=== PATIENT | female | born 1960 | race Caucasian/White ===

== ENCOUNTER → 2016-07-29 | Outpatient (CLI) | payer MEDICARE, MEDICAID ==
[2016-07-29 07:20] LABS: BASO # 0.1 K/mm3 (0.0-0.2); BASO % 0.9 % (0.0-1.0); EOS # 0.2 K/mm3 (0.0-0.50); EOS % 2.5 % (0.0-3.0); LARGE UNSTAINED CELL # 0.2 K/mm3 (0.0-0.4); LARGE UNSTAINED CELL % 2.4 % (0.0-4.0); LYMPH # 1.9 K/mm3 (1.5-4.5); LYMPH % 28.2 % (24.0-44.0); MEAN CORPUSCULAR HEMOGLOBIN 28.1 pg (27.0-33.0); MEAN CORPUSCULAR HGB CONC 32.8 g/dl (32.0-36.5); MEAN CORPUSCULAR VOLUME 85.6 fl (80.0-96.0); MONO # 0.3 K/mm3 (0.0-0.8); MONO % 4.1 % (0.0-5.0); NEUTROPHILS # 3.9 K/mm3 (1.8-7.7); NEUTROPHILS % 61.9 % (36.0-66.0); PLATELET COUNT, AUTOMATED 247 k/mm3 (150-450); RED CELL DISTRIBUTION WIDTH 13.6 % (11.5-14.5); WHITE BLOOD COUNT 6.3 K/mm3 (4.0-10.0)
[2016-07-29 07:52] LABS: ALBUMIN 3.9 GM/DL (3.2-5.2); ALBUMIN/GLOBULIN RATIO 1.26 (1.00-1.93); ALKALINE PHOSPHATASE 102 U/L (45-117); ALT/SGPT 23 U/L (12-78); ANION GAP 9 MEQ/L (8-16); AST/SGOT 12 U/L (15-37); BILIRUBIN,TOTAL 0.3 MG/DL (0.2-1.0); BLOOD UREA NITROGEN 37 MG/DL (7-18); CALCIUM LEVEL 8.6 MG/DL (8.5-10.1); CARBON DIOXIDE LEVEL 25 MEQ/L (21-32); CHLORIDE LEVEL 108 MEQ/L (98-107); CREATININE FOR GFR 0.86 MG/DL (0.55-1.02); FERRITIN 40 NG/ML (8-252); GLOMERULAR FILTRATION RATE > 60.0 (>51); GLUCOSE, FASTING 119 MG/DL (70-105); PERCENT SATURATION 13.2 % (13.2-37.4); POTASSIUM SERUM 4.1 MEQ/L (3.5-5.1); SODIUM LEVEL 142 MEQ/L (136-145); TOTAL IRON BINDING CAPACITY 401 UG/DL (250-450)
== END ==
LOC: M LAB 06:41
PROVIDERS: ATTEND Family Medicine
DX: M17.9 Osteoarthritis of knee, unspecified (principal); Z79.899 Other long term (current) drug therapy

== ENCOUNTER → 2016-11-02 | Outpatient (CLI) | payer MEDICARE, MEDICAID ==
[~2016-11-02] MED LIST: DRIS50002 PO; FLUT05CR TOP; NAPR250T45 PO; THERTAB PO; VIAC8.5C PO
--- NOTE | 2016-11-02 11:34 | REPMRS ---
Patient History The patient states she has not had a clinical breast exam in over a year. Patient is nulliparous. Family history of breast cancer in maternal grandmother. Digital Woman Screen Mammo: November 02, 2016 - Exam #: [id number] Bilateral CC and MLO view(s) were taken. Technologist: Sandhya Yung, Technologist Prior study comparison: November 03, 2015, digital woman screen mammo performed at [facility]. October 29, 2014, digital woman screen mammo performed at [facility]. FINDINGS: There are scattered fibroglandular densities. There has been no change in the appearance of the mammogram from the prior studies. There is a mild amount of residual fibroglandular tissue which is fairly symmetric. There is no interval development of dominant mass, architectural distortion, or clustered microcalcification suggestive of malignancy. ASSESSMENT: BI-RADS/ACR category 1 mammogram. Negative. Recommendation Routine screening mammogram in 1 year (for women over age 40). This mammogram was interpreted with the aid of an FDA-approved computer-aided dectection system. Electronically Signed By: Dc Rivera MD 11/02/16 [id number]
--- NOTE | 2016-11-03 12:27 | DEXA ---
AP SPINE L1 - L4 0.946 -2.0 -1.1 LT FEMUR TOTAL 0.802 -1.6 -0.9 RT FEMUR TOTAL 0.925 -0.7 0.0 TOTAL BODY TOTAL OTHER DUAL FEMUR FRAX* ASSESSMENT Risk factors: Not performed. 10 year probability of fracture Major osteoporotic fracture % Hip fracture % COMMENTS: There is low bone density of the spine and hips. The decreased density of the spine does represent a significant change. The decreased density of the left hip does represent a significant change. The decreased density of the right hip does not represent a significant change. The density of the spine has increased 0.1% since the initial exam on 2008. The spine density has decreased 8.4% since the most recent exam on 10/29/2014. The density of the left hip has decreased 3.3% since the initial exam on 2008. The density of the left hip has decreased 2.3% since the most recent exam on 01/2015. The density of the right hip has decreased 1.6% since the initial exam on 2008. The density of the right hip has decreased 1.2% since the most recent exam on . FOLLOW-UP: Recommendation for the next bone density exam: 2 years. MAX
== END ==
LOC: M WHC 10:29
PROVIDERS: ATTEND Family Medicine
DX: Z12.31 Encounter for screening mammogram for malignant neoplasm of breast (principal); M85.80 Other specified disorders of bone density and structure, unspecified site; Z78.0 Asymptomatic menopausal state
CPT/HCPCS: 77080; G0202

== ENCOUNTER 2016-12-01 09:29 | Outpatient (CLI) | payer MEDICARE, MEDICAID ==
[~2016-12-01] VITALS: Ht 162.6 cm; Wt 78.0 kg
[2016-12-01] MEDS ORDERED: ZOLEDRONIC ACID 5 MG in APPROPRIATE DILUENT 1 EA IV ONE (10:00)
[2016-12-01] MEDS ORDERED: FLUT05CR TOP (10:23)
[2016-12-01] MEDS ORDERED: VIAC8.5C PO (10:23)
[2016-12-01] MEDS ORDERED: NAPR250T45 PO (10:23)
[2016-12-01] MEDS ORDERED: DRIS50002 PO (10:23)
[2016-12-01] MEDS ORDERED: THERTAB PO (10:23)
== END 2016-12-01 10:45 | disposition home or self-care (01) ==
LOC: M INFU 09:29
PROVIDERS: ATTEND Family Medicine
DX: M85.80 Other specified disorders of bone density and structure, unspecified site (principal); F79 Unspecified intellectual disabilities; Z79.899 Other long term (current) drug therapy
CPT/HCPCS: 96365; J3489

== ENCOUNTER → 2017-05-26 | Outpatient (REF) | payer MEDICARE, MEDICAID ==
[2017-05-26 16:01] LABS: BASO % 0.4 % (0.0-1.0); EOS # 0.2 10^3/uL (0.0-0.50); EOS % 2.3 % (0.0-3.0); HEMATOCRIT 44.6 % (36.0-47.0); HEMOGLOBIN 14.4 g/dl (12.0-16.0); IMMATURE GRANULOCYTE % 0.3 % (0-3.0); LYMPH # 2.3 10^3/uL (1.5-4.5); LYMPH % 32.6 % (24.0-44.0); MEAN CORPUSCULAR HEMOGLOBIN 28.1 pg (27.0-33.0); MEAN CORPUSCULAR HGB CONC 32.3 g/dl (32.0-36.5); MEAN CORPUSCULAR VOLUME 86.9 fl (80.0-96.0); MONO # 0.4 10^3/uL (0.0-0.8); MONO % 6.3 % (0.0-5.0); NEUTROPHILS # 4.1 10^3/uL (1.8-7.7); NEUTROPHILS % 58.1 % (36.0-66.0); PLATELET COUNT, AUTOMATED 311 10^3/uL (150-450); RED BLOOD COUNT 5.13 10^6/uL (4.00-5.40); RED CELL DISTRIBUTION WIDTH 13.2 % (11.5-14.5)
[2017-05-26 16:14] LABS: PTH INTACT 37.3 PG/ML (18.5-88.0)
[2017-05-26 16:16] LABS: ALBUMIN 4.2 GM/DL (3.2-5.2); ALBUMIN/GLOBULIN RATIO 1.35 (1.00-1.93); ALKALINE PHOSPHATASE 96 U/L (45-117); ALT/SGPT 23 U/L (12-78); ANION GAP 7 MEQ/L (8-16); AST/SGOT 14 U/L (7-37); BILIRUBIN,TOTAL 0.3 MG/DL (0.2-1.0); BLOOD UREA NITROGEN 31 MG/DL (7-18); C REACTIVE PROTEIN QUANTITATIV < 0.30 MG/DL (0.00-0.30); CALCIUM LEVEL 9.1 MG/DL (8.5-10.1); CARBON DIOXIDE LEVEL 29 MEQ/L (21-32); CHLORIDE LEVEL 108 MEQ/L (98-107); CHOLESTEROL LEVEL 221 MG/DL (<200); CHOLESTEROL RISK RATIO 3.622 (<5); CREATININE FOR GFR 0.79 MG/DL (0.55-1.30); FERRITIN 51 NG/ML (8-252); FREE T4 1.06 NG/DL (0.76-1.46); GLOMERULAR FILTRATION RATE > 60.0 (>51); GLUCOSE, FASTING 88 MG/DL (70-100); HDL CHOLESTEROL 61 MG/DL (>40); IRON (FE) 49 UG/DL (50-170); LDL CHOLESTEROL 112.8 MG/DL (<100); NON-HDL-C 160 MG/DL; PERCENT SATURATION 13.3 % (13.2-45.0); SODIUM LEVEL 144 MEQ/L (136-145); THYROID STIMULATING HORMONE 0.925 uIU/ML (0.358-3.740); TOTAL IRON BINDING CAPACITY 369 UG/DL (250-450); TOTAL PROTEIN 7.3 GM/DL (6.4-8.2); TRIGLYCERIDES LEVEL 236 MG/DL (<150)
== END ==
LOC: M SFHCPLAZ 15:43
DX: D50.9 Iron deficiency anemia, unspecified (principal); E78.2 Mixed hyperlipidemia; E55.9 Vitamin D deficiency, unspecified
CPT/HCPCS: 83550

== ENCOUNTER → 2017-12-29 | Outpatient (CLI) | payer MEDICARE ==
[2017-12-29 08:36] LABS: ALBUMIN 3.9 GM/DL (3.2-5.2); ALBUMIN/GLOBULIN RATIO 1.39 (1.00-1.93); ALKALINE PHOSPHATASE 96 U/L (45-117); ALT/SGPT 21 U/L (12-78); ANION GAP 6 MEQ/L (8-16); AST/SGOT 12 U/L (7-37); BILIRUBIN,TOTAL 0.4 MG/DL (0.2-1.0); BLOOD UREA NITROGEN 29 MG/DL (7-18); CALCIUM LEVEL 9.3 MG/DL (8.5-10.1); CARBON DIOXIDE LEVEL 30 MEQ/L (21-32); CHLORIDE LEVEL 109 MEQ/L (98-107); CREATININE FOR GFR 0.92 MG/DL (0.55-1.30); GLOMERULAR FILTRATION RATE > 60.0 (>51); GLUCOSE, FASTING 89 MG/DL (70-100); POTASSIUM SERUM 4.3 MEQ/L (3.5-5.1); SODIUM LEVEL 145 MEQ/L (136-145); TOTAL PROTEIN 6.7 GM/DL (6.4-8.2)
== END ==
LOC: M LAB 07:32
DX: M85.80 Other specified disorders of bone density and structure, unspecified site (principal)
CPT/HCPCS: 80053

== ENCOUNTER → 2018-04-11 | Outpatient (CLI) | payer MEDICARE, MEDICAID ==
[~2018-04-11] MED LIST changes: -DRIS50002 PO; +DRIS50003 PO; -NAPR250T45 PO; +NAPR250T82 PO
[2018-04-11 07:22] LABS: BASO % 0.6 % (0.0-1.0); EOS # 0.2 10^3/uL (0.0-0.50); EOS % 3.2 % (0.0-3.0); HEMATOCRIT 43.5 % (36.0-47.0); HEMOGLOBIN 14.1 g/dl (12.0-15.5); LYMPH % 28.3 % (24.0-44.0); MEAN CORPUSCULAR HEMOGLOBIN 28.3 pg (27.0-33.0); MEAN CORPUSCULAR HGB CONC 32.4 g/dl (32.0-36.5); MEAN CORPUSCULAR VOLUME 87.2 fl (80.0-96.0); MONO # 0.4 10^3/uL (0.0-0.8); MONO % 5.8 % (0.0-5.0); NEUTROPHILS # 4.5 10^3/uL (1.8-7.7); NEUTROPHILS % 61.8 % (36.0-66.0); PLATELET COUNT, AUTOMATED 264 10^3/uL (150-450); RED BLOOD COUNT 4.99 10^6/uL (4.00-5.40); WHITE BLOOD COUNT 7.2 10^3/uL (4.0-10.0)
[2018-04-11 07:37] LABS: HEMOGLOBIN A1c 5.5 %
[2018-04-11 07:51] LABS: ALBUMIN 3.8 GM/DL (3.2-5.2); ALT/SGPT 21 U/L (12-78); BILIRUBIN,TOTAL 0.5 MG/DL (0.2-1.0); BLOOD UREA NITROGEN 24 MG/DL (7-18); CALCIUM LEVEL 8.9 MG/DL (8.5-10.1); CARBON DIOXIDE LEVEL 28 MEQ/L (21-32); CHLORIDE LEVEL 108 MEQ/L (98-107); CHOLESTEROL LEVEL 198 MG/DL (<200); CHOLESTEROL RISK RATIO 3.666 (<5); CREATININE FOR GFR 0.79 MG/DL (0.55-1.30); GLOMERULAR FILTRATION RATE > 60.0 (>51); GLUCOSE, FASTING 92 MG/DL (70-100); HDL CHOLESTEROL 54 MG/DL (>40); LDL CHOLESTEROL 106 MG/DL (<100); NON-HDL-C 144 MG/DL; POTASSIUM SERUM 4.1 MEQ/L (3.5-5.1); SODIUM LEVEL 143 MEQ/L (136-145); TOTAL PROTEIN 6.7 GM/DL (6.4-8.2); TRIGLYCERIDES LEVEL 191 MG/DL (<150)
[2018-04-11 09:36] LABS: PTH INTACT 40.6 PG/ML (18.5-88.0); TOTAL 25(OH) VITAMIN D 79.4 NG/ML (30.0-100.0)
== END ==
LOC: M LAB 06:20
PROVIDERS: ATTEND Nurse Practitioner Family
DX: I10 Essential (primary) hypertension (principal); E78.2 Mixed hyperlipidemia; E55.9 Vitamin D deficiency, unspecified; Z13.1 Encounter for screening for diabetes mellitus; Z13.220 Encounter for screening for lipoid disorders; E66.3 Overweight

== ENCOUNTER 2018-05-12 10:51 | Outpatient (CLI) | payer MEDICARE, MEDICAID ==
[~2018-05-12] VITALS: Ht 162.6 cm; Wt 79.0 kg
[2018-05-12 11:00] VITALS: BP 126/74
[2018-05-12] MEDS ORDERED: ZOLEDRONIC ACID 5 MG in APPROPRIATE DILUENT 1 EA IV ONE (11:00)
[2018-05-12 12:45] VITALS: BP 131/76
== END 2018-05-12 12:45 | disposition home or self-care (01) ==
LOC: M INFU 10:51
PROVIDERS: ATTEND Nurse Practitioner Family
DX: M85.80 Other specified disorders of bone density and structure, unspecified site (principal); J30.1 Allergic rhinitis due to pollen
CPT/HCPCS: 96365; J3489

== ENCOUNTER → 2018-05-16 | Outpatient (CLI) | payer MEDICARE, MEDICAID ==
--- NOTE | 2018-05-16 13:29 | REPMRS ---
Patient History The patient states she has not had a clinical breast exam in over a year. Patient is nulliparous. Family history of breast cancer in maternal grandmother. No Hormone Replacement Therapy Digital Woman Screen Mammo: May 16, 2018 - Exam #: [id number] Bilateral CC and MLO view(s) were taken. Technologist: Shira Yip, Technologist Prior study comparison: November 02, 2016, digital woman screen mammo performed at [facility]. November 03, 2015, digital woman screen mammo performed at [facility]. October 29, 2014, digital woman screen mammo performed at [facility]. FINDINGS: There are scattered fibroglandular densities. There has been no change in the appearance of the mammogram from the prior studies. There is a mild amount of scattered fibroglandular density which is fairly symmetric. There is no interval development of dominant mass, architectural distortion, or clustered microcalcification suggestive of malignancy. 3-D tomosynthesis shows no additional findings. Assessment: BI-RADS/ACR category 1 mammogram. Negative Mammogram. Recommendation Routine screening mammogram of both breasts in 1 year (for women over age 40). This patient's Lifetime Breast Cancer RIsk is estimated at 14.8 %. This mammogram was interpreted with the aid of an FDA-approved computer-aided dectection system. Electronically Signed By: Karl Kulkarni MD 05/16/18 [id number]
== END ==
LOC: M WHC 11:02
PROVIDERS: ATTEND Family Medicine
DX: Z12.31 Encounter for screening mammogram for malignant neoplasm of breast (principal); Z80.3 Family history of malignant neoplasm of breast

== ENCOUNTER → 2019-03-08 | Outpatient (CLI) | payer MEDICARE, MEDICAID ==
[~2019-03-08] MED LIST changes: +RECL5INJ2 IV; -VIAC8.5C PO; +VIACTIV 500-5001 CHW PO
--- NOTE | 2019-03-13 09:23 | DEXA ---
AP SPINE L1 - L4 0.965 -1.9 -0.8 LT FEMUR TOTAL 0.835 -1.4 -0.5 LT NECK 0.742 -2.1 -1.0 RT FEMUR TOTAL 0.929 -0.6 0.2 RT NECK 0.850 -1.3 -0.2 TOTAL BODY TOTAL OTHER COMMENTS: There is low bone density of the spine and hips. The increased density of the spine does represent a significant change. The increased density of the left hip does represent a signature change. The increased density of the right hip does not represent a signature change. The density of the spine has increased 2.1% since the initial exam on 05/14/2008. The spine density has increased 2.0% since the most recent exam on 11/02/2016. The density of the left hip has increased 0.7% since the initial exam on 05/14/2008. The density of the left hip has increased 4.1% since the most recent exam on 11/02/2016. The density of the right hip has decreased 1.2% since the initial exam on 05/14/2008. The density of the right hip has increased 0.4% since the most recent exam on 11/02/2016. FOLLOW-UP: Recommendation for the next bone density exam: 2 years. MAX
== END ==
LOC: M WHC 10:35
PROVIDERS: ATTEND Physician Assistant Medical
DX: Z12.4 Encounter for screening for malignant neoplasm of cervix (principal); M85.88 Other specified disorders of bone density and structure, other site; Z12.12 Encounter for screening for malignant neoplasm of rectum
CPT/HCPCS: 77080; 82270; G0101; G0123

== ENCOUNTER → 2019-03-08 | Outpatient (REF) | payer MEDICARE, MEDICAID ==
[~2019-03-08] MED LIST changes: -RECL5INJ2 IV
== END ==
LOC: M PLALAB 11:08
PROVIDERS: ATTEND Nurse Practitioner Family
DX: Z12.4 Encounter for screening for malignant neoplasm of cervix (principal)

== ENCOUNTER → 2019-05-10 | Outpatient (CLI) | payer MEDICARE, MEDICAID ==
[2019-05-10 12:36] LABS: BASO % 0.5 % (0.0-1.0); EOS # 0.2 10^3/uL (0.0-0.5); EOS % 3.2 % (0.0-3.0); HEMATOCRIT 45.6 % (36.0-47.0); HEMOGLOBIN 14.7 g/dl (12.0-15.5); LYMPH # 1.7 10^3/uL (1.5-5.0); LYMPH % 27.3 % (24.0-44.0); MEAN CORPUSCULAR HEMOGLOBIN 27.8 pg (27.0-33.0); MEAN CORPUSCULAR HGB CONC 32.2 g/dl (32.0-36.5); MEAN CORPUSCULAR VOLUME 86.2 fl (80.0-96.0); MONO # 0.4 10^3/uL (0.0-0.8); MONO % 6.3 % (0.0-5.0); NEUTROPHILS # 3.9 10^3/uL (1.5-8.5); NEUTROPHILS % 62.5 % (36.0-66.0); PLATELET COUNT, AUTOMATED 265 10^3/uL (150-450); RED BLOOD COUNT 5.29 10^6/uL (4.00-5.40); WHITE BLOOD COUNT 6.2 10^3/uL (4.0-10.0)
[2019-05-10 12:38] LABS: AMORPHOUS SEDIMENT SMALL (NEGATIVE); APPEARANCE, URINE CLOUDY (CLEAR); BACTERIA, URINE AUTO 1+ (NEGATIVE); BILIRUBIN, URINE AUTO NEGATIVE (NEGATIVE); BLOOD, URINE BLOOD NEGATIVE (NEGATIVE); COLOR, URINE YELLOW (YELLOW); GLUCOSE, URINE (UA) AUTO NEGATIVE (NEGATIVE); KETONE, URINE AUTO NEGATIVE (NEGATIVE); LEUKOCYTE ESTERASE, URINE AUTO TRACE (NEGATIVE); MUCUS, URINE SMALL (NEGATIVE); NITRITE, URINE AUTO NEGATIVE (NEGATIVE); PROTEIN, URINE AUTO NEGATIVE (NEGATIVE); RBC, URINE AUTO 1 /HPF (0-3); SPECIFIC GRAVITY URINE AUTO 1.016 (1.002-1.035); SQUAMOUS EPITHELIAL CELL UR AU 2 /HPF (0-6); UROBILINOGEN, URINE AUTO 0.2 mg/dL (0.0-2.0); WBC, URINE AUTO 0 /HPF (0-3)
[2019-05-10 12:55] LABS: ALT/SGPT 21 U/L (12-78); BILIRUBIN,TOTAL 0.5 MG/DL (0.2-1.0); BLOOD UREA NITROGEN 38 MG/DL (7-18); C REACTIVE PROTEIN QUANTITATIV < 0.30 MG/DL (0.00-0.30); CALCIUM LEVEL 9.9 MG/DL (8.5-10.1); CARBON DIOXIDE LEVEL 32 MEQ/L (21-32); CHLORIDE LEVEL 109 MEQ/L (98-107); CHOLESTEROL LEVEL 240 MG/DL (<200); CHOLESTEROL RISK RATIO 3.809 (<5); CREATININE FOR GFR 0.87 MG/DL (0.55-1.30); GLOMERULAR FILTRATION RATE > 60.0 (>51); GLUCOSE, FASTING 90 MG/DL (70-100); HDL CHOLESTEROL 63 MG/DL (>40); LDL CHOLESTEROL 157 MG/DL (<100); NON-HDL-C 177 MG/DL; POTASSIUM SERUM 4.2 MEQ/L (3.5-5.1); SODIUM LEVEL 141 MEQ/L (136-145); TRIGLYCERIDES LEVEL 101 MG/DL (<150)
[2019-05-10 13:01] LABS: VITAMIN B12 LEVEL 659 PG/ML (247-911)
[2019-05-10 13:02] LABS: CREATININE, URINE 71.6 MG/DL; MALB URINE SIEMENS 23.5 MG/L; MAU/CREAT RATIO 32.8 MCG/MG (0.0-30.0)
== END ==
LOC: M PLALAB 08:37
PROVIDERS: ATTEND Family Medicine
DX: D50.9 Iron deficiency anemia, unspecified (principal); R73.01 Impaired fasting glucose; Z79.899 Other long term (current) drug therapy

== ENCOUNTER 2019-05-14 16:37 | Outpatient (CLI) | payer MEDICARE, MEDICAID ==
[~2019-05-14] VITALS: Ht 162.6 cm; Wt 75.0 kg
[2019-05-14 16:47] VITALS: BP 137/83
[2019-05-14] MEDS ORDERED: ZOLEDRONIC ACID 5 MG in IV 1 EA IV ONE (17:00)
[2019-05-14] MEDS ORDERED: RECL5INJ2 IV (17:20)
[2019-05-14 17:34] VITALS: BP 119/76
== END 2019-05-14 17:45 | disposition home or self-care (01) ==
LOC: M INFU 16:37
PROVIDERS: ATTEND Family Medicine
DX: M85.80 Other specified disorders of bone density and structure, unspecified site (principal)
CPT/HCPCS: 96365; J3489

== ENCOUNTER → 2020-01-08 | Outpatient (CLI) | payer MEDICARE, MEDICAID ==
[~2020-01-08] MED LIST changes: +RECL5INJ2 IV
--- NOTE | 2020-01-08 14:01 | REPMRS ---
Patient History The patient states she has not had a clinical breast exam in over a year. Family history of breast cancer in maternal grandmother. No Hormone Replacement Therapy 3D TOMOSYNTHESIS WAS PERFORMED. The Benigno Batista lifetime risk for breast cancer is 14.1%. Ezra bowens. Digital Woman Screen Mammo: January 08, 2020 - Exam #: [id number] Bilateral CC and MLO view(s) were taken. Technologist: Shira Yip, Technologist Prior study comparison: May 16, 2018, bilateral digital woman screen mammo performed at [facility]. November 02, 2016, digital woman screen mammo performed at [facility]. FINDINGS: The breast tissue is heterogeneously dense. This may lower the sensitivity of mammography. There has been no change in the appearance of the mammogram from the prior studies. There is a moderate amount of residual fibroglandular tissue which is fairly symmetric. There is no interval development of dominant mass, areas of architectural distortion, or clustered microcalcification typical of malignancy. Assessment: BI-RADS/ACR category 1 mammogram. Negative Mammogram. Recommendation Routine screening mammogram in 1 year (for women over age 40). This mammogram was interpreted with the aid of an FDA-approved computer-aided dectection system. Electronically Signed By: Dc Rivera MD 01/08/20 1400
== END ==
LOC: M WHC 13:13
PROVIDERS: ATTEND Family Medicine
DX: Z12.31 Encounter for screening mammogram for malignant neoplasm of breast (principal)

== ENCOUNTER → 2020-01-15 | Outpatient (REF) | payer MEDICARE, MEDICAID ==
[2020-01-15 14:18] LABS: BASO % 0.6 % (0.0-1.0); EOS # 0.2 10^3/uL (0.0-0.5); EOS % 2.7 % (0.0-3.0); HEMATOCRIT 45.4 % (36.0-47.0); HEMOGLOBIN 14.4 g/dl (12.0-15.5); LYMPH # 1.9 10^3/uL (1.5-5.0); LYMPH % 29.1 % (24.0-44.0); MEAN CORPUSCULAR HEMOGLOBIN 28.5 pg (27.0-33.0); MEAN CORPUSCULAR HGB CONC 31.7 g/dl (32.0-36.5); MEAN CORPUSCULAR VOLUME 89.9 fl (80.0-96.0); MONO # 0.4 10^3/uL (0.0-0.8); MONO % 6.1 % (0.0-5.0); NEUTROPHILS # 3.9 10^3/uL (1.5-8.5); NEUTROPHILS % 61.2 % (36.0-66.0); PLATELET COUNT, AUTOMATED 233 10^3/uL (150-450); RED BLOOD COUNT 5.05 10^6/uL (4.00-5.40); WHITE BLOOD COUNT 6.4 10^3/uL (4.0-10.0)
[2020-01-15 14:28] LABS: INR 0.94; PROTHROMBIN TIME 12.8 SECONDS (12.5-14.3)
[2020-01-15 14:29] LABS: PARTIAL THROMBOPLASTIN TIME 29.5 SECONDS (24.2-38.5)
[2020-01-15 14:49] LABS: ALBUMIN 4.2 GM/DL (3.2-5.2); ALT/SGPT 69 U/L (12-78); BILIRUBIN,TOTAL 0.5 MG/DL (0.2-1.0); BLOOD UREA NITROGEN 28 MG/DL (7-18); CALCIUM LEVEL 9.9 MG/DL (8.5-10.1); CARBON DIOXIDE LEVEL 30 MEQ/L (21-32); CHLORIDE LEVEL 110 MEQ/L (98-107); CHOLESTEROL LEVEL 147 MG/DL (<200); CREATININE FOR GFR 0.83 MG/DL (0.55-1.30); GLOMERULAR FILTRATION RATE > 60.0 (>51); GLUCOSE, FASTING 94 MG/DL (70-100); HDL CHOLESTEROL 62 MG/DL (>40); LDL CHOLESTEROL 56 MG/DL (<100); NON-HDL-C 85 MG/DL; POTASSIUM SERUM 4.8 MEQ/L (3.5-5.1); SODIUM LEVEL 143 MEQ/L (136-145); TRIGLYCERIDES LEVEL 143 MG/DL (<150)
[2020-01-15 14:53] LABS: TOTAL 25(OH) VITAMIN D 102.3 NG/ML (30.0-100.0)
[2020-01-15 14:54] LABS: PTH INTACT 23.9 PG/ML (18.5-88.0); VITAMIN B12 LEVEL 727 PG/ML (247-911)
[2020-01-15 15:11] LABS: HEMOGLOBIN A1c 5.4 %
== END ==
LOC: M SFHCPLAZ 11:18
PROVIDERS: ATTEND Family Medicine
DX: D50.9 Iron deficiency anemia, unspecified (principal); E78.2 Mixed hyperlipidemia; R73.01 Impaired fasting glucose; E55.9 Vitamin D deficiency, unspecified
CPT/HCPCS: 36415; 80053; 80061; 82306; 82607; 83036; 83970; 85025; 85046; 85610; 85730; G0463

== ENCOUNTER → 2020-06-24 | Outpatient (CLI) | payer MEDICARE, MEDICAID ==
[2020-06-24 07:11] LABS: BASO % 0.5 % (0.0-1.0); EOS # 0.2 10^3/uL (0.0-0.5); EOS % 3.3 % (0.0-3.0); HEMATOCRIT 42.3 % (36.0-47.0); HEMOGLOBIN 13.8 g/dl (12.0-15.5); LYMPH # 1.8 10^3/uL (1.5-5.0); LYMPH % 32.4 % (24.0-44.0); MEAN CORPUSCULAR HEMOGLOBIN 28.8 pg (27.0-33.0); MEAN CORPUSCULAR HGB CONC 32.6 g/dl (32.0-36.5); MEAN CORPUSCULAR VOLUME 88.3 fl (80.0-96.0); MONO # 0.4 10^3/uL (0.0-0.8); MONO % 7.6 % (2.0-8.0); NEUTROPHILS # 3.1 10^3/uL (1.5-8.5); NEUTROPHILS % 55.8 % (36.0-66.0); PLATELET COUNT, AUTOMATED 209 10^3/uL (150-450); RED BLOOD COUNT 4.79 10^6/uL (4.00-5.40); WHITE BLOOD COUNT 5.5 10^3/uL (4.0-10.0)
[2020-06-24 07:47] LABS: ALBUMIN 3.8 GM/DL (3.2-5.2); BLOOD UREA NITROGEN 28 MG/DL (7-18); CARBON DIOXIDE LEVEL 31 MEQ/L (21-32); CHLORIDE LEVEL 110 MEQ/L (98-107); CPK CREATINE PHOSPHOKINASE 81 U/L (26-192); FERRITIN 41 NG/ML (8-252); FREE T4 1.14 NG/DL (0.76-1.46); GLOMERULAR FILTRATION RATE > 60.0 (>51); GLUCOSE, FASTING 98 MG/DL (70-100); POTASSIUM SERUM 4.1 MEQ/L (3.5-5.1); SODIUM LEVEL 143 MEQ/L (136-145)
[2020-06-24 11:13] LABS: PTH INTACT 48.7 PG/ML (18.5-88.0); TOTAL 25(OH) VITAMIN D 82.9 NG/ML (30.0-100.0)
== END ==
LOC: M LAB 06:26
PROVIDERS: ATTEND Family Medicine
DX: E78.2 Mixed hyperlipidemia (principal); E55.9 Vitamin D deficiency, unspecified; D50.9 Iron deficiency anemia, unspecified

== ENCOUNTER 2020-11-21 10:21 | Outpatient (CLI) | payer MEDICARE, MEDICAID ==
[~2020-11-21] VITALS: Ht 165.1 cm; Wt 76.4 kg
[~2020-11-21 10:21] MED LIST changes: +ZOLEDRONIC ACID 5 MG in IV 1 EA IV ONE
[2020-11-21 10:34] VITALS: BP 162/92
[2020-11-21 11:30] VITALS: BP 138/83
== END 2020-11-21 11:30 | disposition home or self-care (01) ==
LOC: M INFU 10:21
PROVIDERS: ATTEND Family Medicine
DX: M85.80 Other specified disorders of bone density and structure, unspecified site (principal)
CPT/HCPCS: 96365; J3489

== ENCOUNTER → 2021-03-10 | Outpatient (REF) | payer MEDICARE, MEDICAID ==
[~2021-03-10] MED LIST changes: -ZOLEDRONIC ACID 5 MG in IV 1 EA IV ONE
== END ==
LOC: M SFHCWAGY 12:47
PROVIDERS: ATTEND Nurse Practitioner Women's Health
DX: Z12.4 Encounter for screening for malignant neoplasm of cervix (principal)
CPT/HCPCS: 87624; G0123

== ENCOUNTER → 2021-03-10 | Outpatient (CLI) | payer MEDICARE, MEDICAID | LOC: M WHC 09:45 | PROVIDERS: ATTEND Nurse Practitioner Women's Health | DX: Z01.419 Encounter for gynecological examination (general) (routine) without abnormal findings (principal); Z12.31 Encounter for screening mammogram for malignant neoplasm of breast; Z80.3 Family history of malignant neoplasm of breast | CPT/HCPCS: 77063; 77067; 87624; G0101; G0123 ==

== ENCOUNTER → 2021-05-01 | Outpatient (CLI) | payer MEDICARE, MEDICAID ==
[2021-05-01 10:28] LABS: HEMOGLOBIN A1c 5.2 %
[2021-05-01 10:30] LABS: ALBUMIN 3.8 GM/DL (3.2-5.2); ALT/SGPT 23 U/L (12-78); BILIRUBIN,TOTAL 0.6 MG/DL (0.2-1.0); BLOOD UREA NITROGEN 32 MG/DL (7-18); CARBON DIOXIDE LEVEL 30 MEQ/L (21-32); CHLORIDE LEVEL 109 MEQ/L (98-107); CHOLESTEROL LEVEL 129 MG/DL (<200); CHOLESTEROL RISK RATIO 2.388 (<5); CREATININE FOR GFR 0.78 MG/DL (0.55-1.30); GLOMERULAR FILTRATION RATE > 60.0 (>45); GLUCOSE, FASTING 82 MG/DL (70-100); HDL CHOLESTEROL 54 MG/DL (>40); LDL CHOLESTEROL 61 MG/DL (<100); NON-HDL-C 75 MG/DL; POTASSIUM SERUM 4.4 MEQ/L (3.5-5.1); SODIUM LEVEL 143 MEQ/L (136-145); TOTAL PROTEIN 6.7 GM/DL (6.4-8.2); TRIGLYCERIDES LEVEL 68 MG/DL (<150)
[2021-05-01 10:37] LABS: TOTAL 25(OH) VITAMIN D 118.2 NG/ML (30.0-100.0)
[2021-05-01 10:39] LABS: PTH INTACT 35.4 PG/ML (18.5-88.0)
[2021-05-02 11:08] LABS: H PYLORI SERUM QUANT IgG ABY 0.17 (0.00-0.79); INSULIN LEVEL 7.2 uIU/mL (2.6-24.9)
== END ==
LOC: M LAB 07:55
PROVIDERS: ATTEND Family Medicine
DX: E78.2 Mixed hyperlipidemia (principal); Z79.899 Other long term (current) drug therapy

== ENCOUNTER 2021-12-28 09:37 | Outpatient (CLI) | payer MEDICARE, MEDICAID ==
[~2021-12-28] VITALS: Ht 165.1 cm; Wt 72.2 kg
[~2021-12-28 09:37] MED LIST changes: +ZOLEDRONIC ACID 5 MG in IV 1 EA IV ONE
[2021-12-28 09:40] VITALS: BP 129/87
[2021-12-28 10:25] VITALS: BP 142/81
== END 2021-12-28 10:30 | disposition home or self-care (01) ==
LOC: M INFU 09:37
PROVIDERS: ATTEND Family Medicine
DX: M85.80 Other specified disorders of bone density and structure, unspecified site (principal)
CPT/HCPCS: 96413; J3489

== ENCOUNTER → 2022-03-11 | Outpatient (CLI) | payer MEDICARE, MEDICAID ==
[~2022-03-11] MED LIST changes: -ZOLEDRONIC ACID 5 MG in IV 1 EA IV ONE
== END ==
LOC: M WHC 08:45
PROVIDERS: ATTEND Physician Assistant Medical
DX: M85.80 Other specified disorders of bone density and structure, unspecified site (principal); Z12.39 Encounter for other screening for malignant neoplasm of breast

== ENCOUNTER 2022-05-13 11:11 | Emergency (ER) | payer MEDICARE, MEDICAID ==
[~2022-05-13] VITALS: Ht 167.6 cm; Wt 75.9 kg
[2022-05-13 11:49] LABS: EOS % 0.2 % (0.0-3.0); HEMATOCRIT 41.9 % (36.0-47.0); HEMOGLOBIN 13.6 g/dl (12.0-15.5); LYMPH # 0.2 10^3/uL (1.5-5.0); LYMPH % 4.3 % (24.0-44.0); MEAN CORPUSCULAR HEMOGLOBIN 28.3 pg (27.0-33.0); MEAN CORPUSCULAR HGB CONC 32.5 g/dl (32.0-36.5); MEAN CORPUSCULAR VOLUME 87.1 fl (80.0-96.0); MONO % 0.2 % (2.0-8.0); NEUTROPHILS # 5.3 10^3/uL (1.5-8.5); NEUTROPHILS % 94.8 % (36.0-66.0); PLATELET COUNT, AUTOMATED 150 10^3/uL (150-450); RED BLOOD COUNT 4.81 10^6/uL (4.00-5.40); WHITE BLOOD COUNT 5.5 10^3/uL (4.0-10.0)
[2022-05-13 12:11] LABS: ALBUMIN 3.5 G/DL (3.2-5.2); BILIRUBIN,TOTAL 1.4 MG/DL (0.3-1.2); CALCIUM LEVEL 9.3 MG/DL (8.3-10.6); CREATININE FOR GFR 1.09 MG/DL (0.55-1.30); GLOMERULAR FILTRATION RATE 54.3 (>45); POTASSIUM SERUM 3.7 MMOL/L (3.5-5.1)
[2022-05-13 12:23] LABS: INFLUENZA A AMPLIFICATION NEGATIVE (NEGATIVE); INFLUENZA B AMPLIFICATION NEGATIVE (NEGATIVE)
[2022-05-13] MEDS ORDERED: ACETAMINOPHEN 325 MG TAB PO ONE (12:45)
[2022-05-13 15:20] VITALS: BP 110/64
== END 2022-05-13 15:19 | disposition home or self-care (01) ==
LOC: EDBD 11:11 → M ED 11:11
DX: B34.8 Other viral infections of unspecified site (principal); R82.71 Bacteriuria

== ENCOUNTER 2022-05-15 10:55 | Emergency (ER) | payer MEDICARE, MEDICAID ==
[~2022-05-15] VITALS: Ht 165.1 cm; Wt 69.9 kg
[2022-05-15 10:59] VITALS: BP 121/72
[2022-05-15] MEDS ORDERED: NAPR-849 (11:12)
[2022-05-15] MEDS ORDERED: VITMTA PO (11:12)
[2022-05-15] MEDS ORDERED: VIAC1CHW PO (11:12)
[2022-05-15] MEDS ORDERED: ATOR1TAB21 (11:12)
[2022-05-15] MEDS ORDERED: CEPH500C PO (12:05)
== END 2022-05-15 12:27 | disposition home or self-care (01) ==
LOC: M ED 10:55
DX: R78.81 Bacteremia (principal); G80.9 Cerebral palsy, unspecified; F79 Unspecified intellectual disabilities; Z79.899 Other long term (current) drug therapy

== ENCOUNTER → 2022-05-21 | Outpatient (REF) | payer MEDICARE, MEDICAID ==
[~2022-05-21] MED LIST changes: +ATOR1TAB21; +CEPH500C PO; +NAPR-849; +VIAC1CHW PO; +VITMTA PO
[2022-05-21 14:08] LABS: BASO % 0.4 % (0.0-1.0); EOS # 0.2 10^3/uL (0.0-0.5); EOS % 1.7 % (0.0-3.0); HEMOGLOBIN 12.7 g/dl (12.0-15.5); LYMPH % 21.7 % (24.0-44.0); MEAN CORPUSCULAR HEMOGLOBIN 28.3 pg (27.0-33.0); MEAN CORPUSCULAR HGB CONC 31.8 g/dl (32.0-36.5); MEAN CORPUSCULAR VOLUME 89.3 fl (80.0-96.0); MONO # 0.6 10^3/uL (0.0-0.8); MONO % 5.9 % (2.0-8.0); NEUTROPHILS # 6.5 10^3/uL (1.5-8.5); NEUTROPHILS % 69.2 % (36.0-66.0); PLATELET COUNT, AUTOMATED 424 10^3/uL (150-450); RED BLOOD COUNT 4.48 10^6/uL (4.00-5.40); WHITE BLOOD COUNT 9.4 10^3/uL (4.0-10.0)
[2022-05-21 14:13] LABS: ALKALINE PHOSPHATASE 101 U/L (46-116); ALT/SGPT 27 U/L (7.0-40); AST/SGOT 16 U/L (<34); BILIRUBIN,TOTAL 0.3 MG/DL (0.3-1.2); BLOOD UREA NITROGEN 25 MG/DL (9-23); CARBON DIOXIDE LEVEL 30 MMOL/L (20-31); CHLORIDE LEVEL 109 MMOL/L (98-107); CREATININE FOR GFR 0.76 MG/DL (0.55-1.30); GLOMERULAR FILTRATION RATE > 60.0 (>45); GLUCOSE, FASTING 97 MG/DL (74-106); POTASSIUM SERUM 5.1 MMOL/L (3.5-5.1); PTH INTACT 27.4 PG/ML (18.5-88.0); SODIUM LEVEL 143 MMOL/L (136-145); TOTAL PROTEIN 6.3 G/DL (5.7-8.2)
[2022-05-21 14:14] LABS: FERRITIN 101.1 NG/ML (7.3-270.7)
[2022-05-21 14:15] LABS: TOTAL 25(OH) VITAMIN D 110.5 NG/ML (20.0-100.0)
== END ==
LOC: M SFHCPLAZ 08:09
PROVIDERS: ATTEND Family Medicine
DX: E55.9 Vitamin D deficiency, unspecified (principal); D50.9 Iron deficiency anemia, unspecified

== ENCOUNTER → 2022-06-10 | Outpatient (CLI) | payer MEDICARE, MEDICAID ==
[2022-06-10 15:35] LABS: BASO % 0.7 % (0.0-1.0); EOS # 0.3 10^3/uL (0.0-0.5); EOS % 4.2 % (0.0-3.0); HEMATOCRIT 43.4 % (36.0-47.0); HEMOGLOBIN 13.4 g/dl (12.0-15.5); LYMPH # 2.2 10^3/uL (1.5-5.0); LYMPH % 36.8 % (24.0-44.0); MEAN CORPUSCULAR HEMOGLOBIN 27.3 pg (27.0-33.0); MEAN CORPUSCULAR HGB CONC 30.9 g/dl (32.0-36.5); MEAN CORPUSCULAR VOLUME 88.6 fl (80.0-96.0); MONO # 0.4 10^3/uL (0.0-0.8); MONO % 6.2 % (2.0-8.0); NEUTROPHILS # 3.1 10^3/uL (1.5-8.5); NEUTROPHILS % 51.8 % (36.0-66.0); PLATELET COUNT, AUTOMATED 318 10^3/uL (150-450)
[2022-06-10 16:10] LABS: ERYTHROCYTE SEDIMENTATION RATE 43 mm/hr (0-30)
[2022-06-10 16:14] LABS: C REACTIVE PROTEIN QUANTITATIV < 0.40 MG/DL (<1.0)
[2022-06-10 16:18] LABS: ALBUMIN 3.4 G/DL (3.2-5.2); ALKALINE PHOSPHATASE 104 U/L (46-116); ALT/SGPT 14 U/L (7.0-40); AST/SGOT 13 U/L (<34); BILIRUBIN,TOTAL 0.3 MG/DL (0.3-1.2); BLOOD UREA NITROGEN 28 MG/DL (9-23); CARBON DIOXIDE LEVEL 32 MMOL/L (20-31); CHLORIDE LEVEL 107 MMOL/L (98-107); CREATININE FOR GFR 0.82 MG/DL (0.55-1.30); GLOMERULAR FILTRATION RATE > 60.0 (>45); GLUCOSE, FASTING 80 MG/DL (74-106); POTASSIUM SERUM 4.5 MMOL/L (3.5-5.1); SODIUM LEVEL 144 MMOL/L (136-145); TOTAL PROTEIN 6.5 G/DL (5.7-8.2)
== END ==
LOC: M PLALAB 14:12
PROVIDERS: ATTEND Physician Assistant
DX: R78.81 Bacteremia (principal); A49.8 Other bacterial infections of unspecified site

== ENCOUNTER → 2022-06-25 | Outpatient (CLI) | payer MEDICARE, MEDICAID ==
[~2022-06-25] MED LIST changes: +GASTROGRAFIN SOLUTION 30ML As Ordered ONE; +ISOVUE-370 76% 100ML VIAL As Ordered ONE
== END ==
LOC: M RAD 09:06
PROVIDERS: ATTEND Physician Assistant
DX: R78.81 Bacteremia (principal); A49.8 Other bacterial infections of unspecified site; N20.1 Calculus of ureter; R93.5 Abnormal findings on diagnostic imaging of other abdominal regions, including retroperitoneum; K42.9 Umbilical hernia without obstruction or gangrene
CPT/HCPCS: 74177; Q9963; Q9967

== ENCOUNTER → 2022-07-08 | Outpatient (CLI) | payer MEDICARE, MEDICAID ==
[~2022-07-08] MED LIST changes: -GASTROGRAFIN SOLUTION 30ML As Ordered ONE; -ISOVUE-370 76% 100ML VIAL As Ordered ONE
== END ==
LOC: M CARPUL 13:44
PROVIDERS: ATTEND Physician Assistant
DX: R78.81 Bacteremia (principal); I08.3 Combined rheumatic disorders of mitral, aortic and tricuspid valves

== ENCOUNTER → 2022-08-18 | Outpatient (CLI) | payer MEDICARE, MEDICAID | LOC: M RAD 15:21 | PROVIDERS: ATTEND Family Medicine | DX: N39.0 Urinary tract infection, site not specified (principal) ==

== ENCOUNTER → 2022-11-30 | Outpatient (REF) | payer MEDICARE, MEDICAID ==
[2022-11-30 14:21] LABS: AMORPHOUS SEDIMENT SMALL (NEGATIVE); APPEARANCE, URINE CLOUDY (CLEAR); BACTERIA, URINE AUTO NEGATIVE (NEGATIVE); BILIRUBIN, URINE AUTO NEGATIVE (NEGATIVE); BLOOD, URINE BLOOD 1+ (NEGATIVE); COLOR, URINE YELLOW (YELLOW); GLUCOSE, URINE (UA) AUTO NEGATIVE (NEGATIVE); KETONE, URINE AUTO NEGATIVE (NEGATIVE); LEUKOCYTE ESTERASE, URINE AUTO NEGATIVE (NEGATIVE); NITRITE, URINE AUTO NEGATIVE (NEGATIVE); PROTEIN, URINE AUTO NEGATIVE (NEGATIVE); RBC, URINE AUTO 5 /HPF (0-3); SPECIFIC GRAVITY URINE AUTO 1.013 (1.002-1.035); SQUAMOUS EPITHELIAL CELL UR AU 1 /HPF (0-6); UROBILINOGEN, URINE AUTO 0.2 mg/dL (0.0-2.0); WBC, URINE AUTO 1 /HPF (0-3)
== END ==
LOC: M SFHCPLAZ 13:47
PROVIDERS: ATTEND Nurse Practitioner Family
DX: R35.0 Frequency of micturition (principal)

== ENCOUNTER → 2023-01-26 | Outpatient (CLI) | payer MEDICARE, MEDICAID ==
[2023-01-26 07:24] LABS: BASO % 0.5 % (0.0-1.0); EOS # 0.2 10^3/uL (0.0-0.5); EOS % 3.4 % (0.0-3.0); HEMATOCRIT 45.4 % (36.0-47.0); HEMOGLOBIN 14.5 g/dl (12.0-15.5); LYMPH % 31.5 % (24.0-44.0); MEAN CORPUSCULAR HEMOGLOBIN 28.3 pg (27.0-33.0); MEAN CORPUSCULAR HGB CONC 31.9 g/dl (32.0-36.5); MEAN CORPUSCULAR VOLUME 88.7 fl (80.0-96.0); MONO # 0.4 10^3/uL (0.0-0.8); NEUTROPHILS # 3.6 10^3/uL (1.5-8.5); NEUTROPHILS % 58.4 % (36.0-66.0); PLATELET COUNT, AUTOMATED 222 10^3/uL (150-450); RED BLOOD COUNT 5.12 10^6/uL (4.00-5.40); WHITE BLOOD COUNT 6.2 10^3/uL (4.0-10.0)
[2023-01-26 08:19] LABS: HEMOGLOBIN A1c 5.2 % (4.0-6.0)
[2023-01-26 08:22] LABS: ALBUMIN 3.8 G/DL (3.2-5.2); ALKALINE PHOSPHATASE 103 U/L (46-116); ALT/SGPT 14 U/L (7.0-40); AST/SGOT 15 U/L (<34); BILIRUBIN,TOTAL 0.7 MG/DL (0.3-1.2); BLOOD UREA NITROGEN 35 MG/DL (9-23); CALCIUM LEVEL 9.5 MG/DL (8.3-10.6); CARBON DIOXIDE LEVEL 30 MMOL/L (20-31); CHLORIDE LEVEL 108 MMOL/L (98-107); CHOLESTEROL LEVEL 154 MG/DL (<200); CHOLESTEROL RISK RATIO 2.46 (<5); CREATININE FOR GFR 0.75 MG/DL (0.55-1.30); FERRITIN 36.1 NG/ML (7.3-270.7); GLOMERULAR FILTRATION RATE > 60.0 (>45); GLUCOSE, FASTING 96 MG/DL (74-106); HDL CHOLESTEROL 62.4 MG/DL (>40); NON-HDL-C 91.6 MG/DL; POTASSIUM SERUM 3.8 MMOL/L (3.5-5.1); PTH INTACT 47.7 PG/ML (18.5-88.0); SODIUM LEVEL 143 MMOL/L (136-145); TOTAL 25(OH) VITAMIN D 108.6 NG/ML (20.0-100.0); TOTAL PROTEIN 6.5 G/DL (5.7-8.2); TRIGLYCERIDES LEVEL 98 MG/DL (<150)
== END ==
LOC: M LAB 06:16
PROVIDERS: ATTEND Family Medicine
DX: E78.2 Mixed hyperlipidemia (principal); R73.01 Impaired fasting glucose; E55.9 Vitamin D deficiency, unspecified; D50.9 Iron deficiency anemia, unspecified

== ENCOUNTER 2023-02-07 14:58 | Outpatient (CLI) | payer MEDICARE, MEDICAID ==
[~2023-02-07] VITALS: Ht 162.6 cm; Wt 71.6 kg
[2023-02-07 15:00] VITALS: BP 138/90; O2SAT 100
[2023-02-07] MEDS ORDERED: ZOLEDRONIC ACID 5 MG in IV 1 EA IV ONE (15:00)
[2023-02-07 15:50] VITALS: BP 127/74; O2SAT 96
== END 2023-02-07 15:51 | disposition home or self-care (01) ==
LOC: M INFU 14:58
PROVIDERS: ATTEND Family Medicine
DX: M85.80 Other specified disorders of bone density and structure, unspecified site (principal)
CPT/HCPCS: 96413; J3489

== ENCOUNTER → 2023-02-09 | Outpatient (CLI) | payer MEDICARE, MEDICAID ==
[~2023-02-09] MED LIST changes: +ISOVUE-370 76% 100ML VIAL As Ordered ONE
== END ==
LOC: M RAD 08:53
PROVIDERS: ATTEND Family Medicine
DX: R19.00 Intra-abdominal and pelvic swelling, mass and lump, unspecified site (principal)
CPT/HCPCS: 72193; Q9967

== ENCOUNTER → 2023-05-13 | Outpatient (CLI) | payer MEDICARE, MEDICAID ==
[~2023-05-13] MED LIST changes: -ISOVUE-370 76% 100ML VIAL As Ordered ONE
== END ==
LOC: M WHC 09:41
PROVIDERS: ATTEND Family Medicine
DX: Z12.31 Encounter for screening mammogram for malignant neoplasm of breast (principal)

== ENCOUNTER → 2023-08-26 | Outpatient (CLI) | payer MEDICARE, MEDICAID ==
[2023-08-26 07:16] LABS: BASO % 0.5 % (0.0-1.0); EOS # 0.2 10^3/uL (0.0-0.5); HEMATOCRIT 41.3 % (36.0-47.0); HEMOGLOBIN 13.4 g/dl (12.0-15.5); LYMPH # 1.7 10^3/uL (1.5-5.0); LYMPH % 27.9 % (24.0-44.0); MEAN CORPUSCULAR HEMOGLOBIN 28.5 pg (27.0-33.0); MEAN CORPUSCULAR HGB CONC 32.4 g/dl (32.0-36.5); MEAN CORPUSCULAR VOLUME 87.9 fl (80.0-96.0); MONO # 0.4 10^3/uL (0.0-0.8); MONO % 6.3 % (2.0-8.0); NEUTROPHILS # 3.7 10^3/uL (1.5-8.5); NEUTROPHILS % 62.1 % (36.0-66.0); PLATELET COUNT, AUTOMATED 233 10^3/uL (150-450); WHITE BLOOD COUNT 5.9 10^3/uL (4.0-10.0)
[2023-08-26 07:28] LABS: C REACTIVE PROTEIN QUANTITATIV < 0.40 MG/DL (<1.0)
[2023-08-26 07:29] LABS: CPK CREATINE PHOSPHOKINASE 110 U/L (34-145)
[2023-08-26 07:32] LABS: FREE T4 1.25 NG/DL (0.89-1.76)
[2023-08-26 07:33] LABS: FERRITIN 44.8 NG/ML (7.3-270.7)
== END ==
LOC: M LAB 06:23
PROVIDERS: ATTEND Family Medicine
DX: E78.2 Mixed hyperlipidemia (principal); D50.9 Iron deficiency anemia, unspecified

== ENCOUNTER → 2023-10-03 | Outpatient (CLI) | payer MEDICARE, MEDICAID | LOC: M RAD 14:09 | PROVIDERS: ATTEND Family Medicine | DX: N20.0 Calculus of kidney (principal) ==

== ENCOUNTER → 2023-12-20 | Outpatient (CLI) | payer MEDICARE, MEDICAID | LOC: M WHC 12:49 | PROVIDERS: ATTEND Family Medicine | DX: M85.80 Other specified disorders of bone density and structure, unspecified site (principal) ==

== ENCOUNTER → 2023-12-27 | Outpatient (CLI) | payer MEDICARE, MEDICAID ==
[~2023-12-27] MED LIST changes: -ATOR1TAB21; +ATOR1TAB21 PO; -NAPR-849; +NAPR-849 PO; +THERTAB52 PO; +VITA1CAP25 PO
[2023-12-27 08:06] LABS: HEMATOCRIT 44.6 % (36.0-47.0); HEMOGLOBIN 14.3 g/dl (12.0-15.5); MEAN CORPUSCULAR HEMOGLOBIN 28.2 pg (27.0-33.0); MEAN CORPUSCULAR HGB CONC 32.1 g/dl (32.0-36.5); PLATELET COUNT, AUTOMATED 241 10^3/uL (150-450); RED BLOOD COUNT 5.07 10^6/uL (4.00-5.40); WHITE BLOOD COUNT 7.1 10^3/uL (4.0-10.0)
[2023-12-27 08:34] LABS: BLOOD UREA NITROGEN 39 MG/DL (9-23); CALCIUM LEVEL 9.8 MG/DL (8.3-10.6); CARBON DIOXIDE LEVEL 30 MMOL/L (20-31); CHLORIDE LEVEL 108 MMOL/L (98-107); CREATININE FOR GFR 0.76 MG/DL (0.55-1.30); GLOMERULAR FILTRATION RATE > 60.0 (>45); GLUCOSE, FASTING 101 MG/DL (74-106); POTASSIUM SERUM 4.3 MMOL/L (3.5-5.1); SODIUM LEVEL 142 MMOL/L (136-145)
== END ==
LOC: M RAD 07:10
PROVIDERS: ATTEND Physician Assistant
DX: Z01.818 Encounter for other preprocedural examination (principal)

== ENCOUNTER → 2024-01-03 | Outpatient (CLI) | payer MEDICARE, MEDICAID ==
[2024-01-03 07:21] LABS: BASO % 0.5 % (0.0-1.0); EOS # 0.2 10^3/uL (0.0-0.5); EOS % 3.7 % (0.0-3.0); HEMATOCRIT 42.6 % (36.0-47.0); HEMOGLOBIN 13.8 g/dl (12.0-15.5); LYMPH # 1.8 10^3/uL (1.5-5.0); LYMPH % 29.4 % (24.0-44.0); MEAN CORPUSCULAR HEMOGLOBIN 28.2 pg (27.0-33.0); MEAN CORPUSCULAR HGB CONC 32.4 g/dl (32.0-36.5); MEAN CORPUSCULAR VOLUME 86.9 fl (80.0-96.0); MONO # 0.4 10^3/uL (0.0-0.8); MONO % 6.5 % (2.0-8.0); NEUTROPHILS # 3.7 10^3/uL (1.5-8.5); NEUTROPHILS % 59.7 % (36.0-66.0); PLATELET COUNT, AUTOMATED 226 10^3/uL (150-450); WHITE BLOOD COUNT 6.2 10^3/uL (4.0-10.0)
[2024-01-03 07:39] LABS: CHOLESTEROL RISK RATIO 2.78 (<5); HDL CHOLESTEROL 52.1 MG/DL (>40); LDL CHOLESTEROL 66.5 MG/DL (<100); NON-HDL-C 92.9 MG/DL
[2024-01-03 07:41] LABS: FREE T4 1.43 NG/DL (0.89-1.76); THYROID STIMULATING HORMONE 1.029 uIU/ML (0.55-4.78)
[2024-01-03 07:42] LABS: FERRITIN 25.4 NG/ML (7.3-270.7)
[2024-01-03 07:45] LABS: HEMOGLOBIN A1c 5.2 % (4.0-6.0)
== END ==
LOC: M LAB 06:28
PROVIDERS: ATTEND Family Medicine
DX: D50.9 Iron deficiency anemia, unspecified (principal); E78.5 Hyperlipidemia, unspecified; R73.01 Impaired fasting glucose

== ENCOUNTER 2024-01-05 06:29 | Day surgery (SDC) | payer MEDICARE, MEDICAID ==
[~2024-01-05] VITALS: Ht 160 cm; Wt 72.1 kg
[2024-01-05] MEDS ORDERED: LR 1,000 ML IV SCH (07:40)
[2024-01-05] MEDS ORDERED: propofoL 200 MG/20 ML VIAL As Ordered ONE (07:42)
[2024-01-05] MEDS ORDERED: ONDANSETRON 4MG 2ML VIAL As Ordered ONE (07:42)
[2024-01-05] MEDS ORDERED: MIDAZOLAM INJ 2MG/2ML VIAL As Ordered ONE (07:43)
[2024-01-05] MEDS ORDERED: fentaNYL 100 MCG/2 ML INJECTION As Ordered ONE (07:43)
[2024-01-05] MEDS: ceFAZolin SOD 2 GM in IV 1 EA IV ONE (07:52)
[2024-01-05] MEDS ORDERED: ACETAMINOPHEN 1000MG 100ML IV BAG As Ordered ONE (08:03)
[2024-01-05] MEDS ORDERED: dexmedeTOMIDine (4MCG/ML)200MCG/50ML BTL (PRECEDEX) As Ordered ONE (08:03)
[2024-01-05] MEDS ORDERED: OXYC1TAB23 PO (08:22)
[2024-01-05] MEDS ORDERED: FLOM0.4C39 PO (08:22)
[2024-01-05 09:45] VITALS: BP 110/72; TEMP 97; O2SAT 98
== END 2024-01-05 09:53 | disposition home or self-care (01) ==
LOC: M SDC 06:29
PROVIDERS: ATTEND Urology
DX: N20.0 Calculus of kidney (principal); M81.0 Age-related osteoporosis without current pathological fracture; G80.9 Cerebral palsy, unspecified; Z79.899 Other long term (current) drug therapy
CPT/HCPCS: 50590; 74018; J0131; J0690; J1100; J2250; J2405; J3010

== ENCOUNTER → 2024-01-20 | Outpatient (REF) | payer MEDICARE, MEDICAID ==
[~2024-01-20] MED LIST changes: +FLOM0.4C39 PO; +OXYC1TAB23 PO
== END ==
LOC: M SFHCPLAZ 15:00
PROVIDERS: ATTEND Family Medicine
DX: N20.0 Calculus of kidney (principal)

== ENCOUNTER → 2024-01-31 | Outpatient (CLI) | payer MEDICARE, MEDICAID ==
[2024-01-31 07:22] LABS: BASO % 0.5 % (0.0-1.0); EOS # 0.2 10^3/uL (0.0-0.5); EOS % 3.1 % (0.0-3.0); HEMATOCRIT 42.2 % (36.0-47.0); HEMOGLOBIN 13.2 g/dl (12.0-15.5); LYMPH # 1.4 10^3/uL (1.5-5.0); LYMPH % 23.2 % (24.0-44.0); MEAN CORPUSCULAR HEMOGLOBIN 27.5 pg (27.0-33.0); MEAN CORPUSCULAR HGB CONC 31.3 g/dl (32.0-36.5); MEAN CORPUSCULAR VOLUME 87.9 fl (80.0-96.0); MONO # 0.3 10^3/uL (0.0-0.8); MONO % 5.3 % (2.0-8.0); NEUTROPHILS # 4.2 10^3/uL (1.5-8.5); NEUTROPHILS % 67.6 % (36.0-66.0); PLATELET COUNT, AUTOMATED 288 10^3/uL (150-450); WHITE BLOOD COUNT 6.2 10^3/uL (4.0-10.0)
[2024-01-31 07:54] LABS: HEMOGLOBIN A1c 5.5 % (4.0-6.0)
[2024-01-31 08:01] LABS: ALBUMIN 3.3 G/DL (3.2-5.2); ALKALINE PHOSPHATASE 109 U/L (35-104); ALT/SGPT 11 U/L (7.0-40); AST/SGOT < 8 U/L (<34); BILIRUBIN,TOTAL 0.3 MG/DL (0.3-1.2); BLOOD UREA NITROGEN 31 MG/DL (9-23); CALCIUM LEVEL 9.9 MG/DL (8.3-10.6); CARBON DIOXIDE LEVEL 29 MMOL/L (20-31); CHLORIDE LEVEL 110 MMOL/L (98-107); CHOLESTEROL LEVEL 137 MG/DL (<200); CHOLESTEROL RISK RATIO 2.95 (<5); CREATININE FOR GFR 0.93 MG/DL (0.55-1.30); GLOMERULAR FILTRATION RATE > 60.0 (>45); GLUCOSE, FASTING 102 MG/DL (74-106); HDL CHOLESTEROL 46.3 MG/DL (>40); LDL CHOLESTEROL 51.7 MG/DL (<100); NON-HDL-C 90.7 MG/DL; SODIUM LEVEL 143 MMOL/L (136-145); TOTAL PROTEIN 6.7 G/DL (5.7-8.2); TRIGLYCERIDES LEVEL 195 MG/DL (<150)
[2024-01-31 08:02] LABS: THYROID STIMULATING HORMONE 1.335 uIU/ML (0.55-4.78)
[2024-01-31 08:03] LABS: FERRITIN 72.1 NG/ML (7.3-270.7); FREE T4 1.32 NG/DL (0.89-1.76)
== END ==
LOC: M LAB 06:20
PROVIDERS: ATTEND Family Medicine
DX: D50.9 Iron deficiency anemia, unspecified (principal); E07.9 Disorder of thyroid, unspecified; E78.00 Pure hypercholesterolemia, unspecified

== ENCOUNTER → 2024-02-02 | Outpatient (CLI) | payer MEDICARE, MEDICAID | LOC: M RAD 10:44 | PROVIDERS: ATTEND Urology | DX: N20.0 Calculus of kidney (principal) ==

== ENCOUNTER 2024-02-10 10:20 | Outpatient (CLI) | payer MEDICARE, MEDICAID ==
[~2024-02-10] VITALS: Ht 160 cm; Wt 73.0 kg
[2024-02-10 10:45] VITALS: BP 148/78; O2SAT 98
[2024-02-10] MEDS: ZOLEDRONIC ACID 5 MG in IV 1 EA IV ONE (10:48)
[2024-02-10 11:25] VITALS: BP 143/78; O2SAT 98
== END 2024-02-10 11:25 ==
LOC: M INFU 10:20
PROVIDERS: ATTEND Family Medicine
DX: M85.80 Other specified disorders of bone density and structure, unspecified site (principal)
CPT/HCPCS: 96413; J3489

== ENCOUNTER → 2024-05-18 | Outpatient (CLI) | payer MEDICARE, MEDICAID | LOC: M WHC 10:30 | PROVIDERS: ATTEND Family Medicine | DX: Z12.31 Encounter for screening mammogram for malignant neoplasm of breast (principal) ==

== ENCOUNTER → 2024-07-17 | Outpatient (CLI) | payer MEDICARE, MEDICAID ==
[~2024-07-17] MED LIST changes: -FLOM0.4C39 PO; +TAMS-18 PO
== END ==
LOC: M PLAIMG 07:24
PROVIDERS: ATTEND Physician Assistant
DX: Z87.442 Personal history of urinary calculi (principal); M16.0 Bilateral primary osteoarthritis of hip; M47.9 Spondylosis, unspecified; I87.8 Other specified disorders of veins

== ENCOUNTER → 2025-01-28 | Outpatient (CLI) | payer MEDICARE, MEDICAID ==
[2025-01-28 17:05] LABS: BASO # 0.0 10^3/uL (0.0-0.2); BASO % 0.5 % (0.0-1.0); EOS # 0.2 10^3/uL (0.0-0.5); EOS % 3.0 % (0.0-3.0); LYMPH # 2.0 10^3/uL (1.5-5.0); LYMPH % 29.9 % (24.0-44.0); MONO # 0.4 10^3/uL (0.0-0.8); MONO % 6.6 % (2.0-8.0); NEUTROPHILS # 3.9 10^3/uL (1.5-8.5); NEUTROPHILS % 59.8 % (36.0-66.0); PLATELET COUNT, AUTOMATED 273 10^3/uL (150-450)
[2025-01-28 17:30] LABS: CHOLESTEROL LEVEL 162.0 MG/DL (<200); CHOLESTEROL RISK RATIO 2.79 (<5); LDL CHOLESTEROL 60.9 MG/DL (<100); NON-HDL-C 104.1 MG/DL; TRIGLYCERIDES LEVEL 216.0 MG/DL (<150)
[2025-01-28 17:31] LABS: PTH INTACT 35.0 PG/ML (18.5-88.0)
[2025-01-28 17:32] LABS: FREE T4 1.2 NG/DL (0.89-1.76)
[2025-01-28 17:33] LABS: TOTAL 25(OH) VITAMIN D 98.0 NG/ML (20.0-100.0)
== END ==
LOC: M LAB 15:29
PROVIDERS: ATTEND Family Medicine
DX: D50.9 Iron deficiency anemia, unspecified (principal); E78.2 Mixed hyperlipidemia; E55.9 Vitamin D deficiency, unspecified; N20.0 Calculus of kidney

== ENCOUNTER → 2025-01-31 | Outpatient (CLI) | payer MEDICARE, MEDICAID | LOC: M RAD 06:37 | PROVIDERS: ATTEND Family Medicine | DX: Z87.442 Personal history of urinary calculi (principal) ==

== ENCOUNTER → 2025-03-04 | Outpatient (CLI) | payer MEDICARE, MEDICAID ==
[2025-03-04 14:14] LABS: ALT/SGPT 17.0 U/L (7.0-40); AST/SGOT 17.0 U/L (<34); CALCIUM LEVEL 10.5 MG/DL (8.3-10.6); CARBON DIOXIDE LEVEL 30.0 MMOL/L (20-31); CHLORIDE LEVEL 108.0 MMOL/L (98-107); CREATININE FOR GFR 0.9 MG/DL (0.55-1.30); GLOMERULAR FILTRATION RATE 71.4 (>45); POTASSIUM SERUM 4.1 MMOL/L (3.5-5.1); SODIUM LEVEL 146.0 MMOL/L (136-145)
== END ==
LOC: M PLALAB 10:01
PROVIDERS: ATTEND Family Medicine
DX: E55.9 Vitamin D deficiency, unspecified (principal)